=== PATIENT | male | born 1950 | race Caucasian/White ===

== ENCOUNTER 2017-08-06 11:01 | Outpatient (CLI) | payer OTHER, MEDICARE | END 2017-08-06 11:02 | disposition critical access hospital (66) | LOC: EMS 11:01 | PROVIDERS: ATTEND Surgery | DX: R07.9 Chest pain, unspecified (principal); V57.5XXA Driver of pick-up truck or van injured in collision with fixed or stationary object in traffic accident, initial encounter; Y92.414 Local residential or business street as the place of occurrence of the external cause | CPT/HCPCS: A0425; A0429 ==

== ENCOUNTER 2017-08-06 11:23 | Emergency (ER) | payer OTHER, MEDICARE ==
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
[2017-08-06] MEDS ORDERED: oxyCOD/ACETAMIN 5 MG/325 MG TABLET PO STA (12:36)
[2017-08-06 13:15] VITALS: BP 152/89
== END 2017-08-06 13:21 | disposition home or self-care (01) ==
LOC: ED 11:23
DX: S20.219A Contusion of unspecified front wall of thorax, initial encounter (principal); V57.5XXA Driver of pick-up truck or van injured in collision with fixed or stationary object in traffic accident, initial encounter; B20 Human immunodeficiency virus [HIV] disease; Z79.899 Other long term (current) drug therapy
CPT/HCPCS: 71046; 93005; 99283; 99284; A9270